=== PATIENT | male | born 1965 | race Hispanic/Latino ===

== ENCOUNTER 2020-09-14 14:39 | Emergency (ER) | payer BC ==
[2020-09-14 22:16] LABS: SARS-CoV-2 PCR by NAA Not Detected (NotDetected)
== END 2020-09-14 15:03 | disposition home or self-care (01) ==
LOC: ERS 14:39
DX: R05 Cough (principal); Z20.822 Contact with and (suspected) exposure to COVID-19
CPT/HCPCS: 87635; 99283; U0003; U0005

== ENCOUNTER 2022-07-30 08:16 | Emergency (ER) | payer OTHER | END 2022-07-30 09:08 | disposition home or self-care (01) | LOC: ERS 08:16 | DX: S01.81XD Laceration without foreign body of other part of head, subsequent encounter (principal); F17.210 Nicotine dependence, cigarettes, uncomplicated ==